=== PATIENT | male | born 1970 | race Caucasian/White ===

== ENCOUNTER → 2022-12-07 | Outpatient (CLI) | payer BC ==
[~2022-12-07] MED LIST: ACETAMINOPHEN TAB 650MG DOSE (2X325MG) PO PRN; HOME MED LIST COMPLETE! XX SCH; LIDOCAINE 1% MDV 20ML VIAL As Ordered ONE
[2022-12-07 07:55] VITALS: TEMP 97.5
[2022-12-07 12:19] VITALS: BP 136/77; O2SAT 98
== END ==
LOC: M IRPRO 07:43
PROVIDERS: ATTEND Internal Medicine Critical Care Medicine
DX: C34.11 Malignant neoplasm of upper lobe, right bronchus or lung (principal)